=== PATIENT | female | born 1950 | race Caucasian/White ===

== ENCOUNTER 2018-09-09 04:56 | Observation (INO) ==
--- NOTE | 2018-09-09 05:11 | ED ---
HPI General Chief Complaint: Chest Pain Stated Complaint: SOB chest pain sore throat Time Seen by Provider: 09/09/18 05:05 Source: patient Mode of arrival: ambulatory Limitations: no limitations History of Present Illness HPI narrative: 68-year-old female presents to the emergency department stating that she has been having chest pain on and off for the past month was seen by her primary care provider recently who did an EKG and chest x-ray which was reportedly normal and has been referred to the [facility] heart group but has not yet seen the automatic vulcanizing operator. Patient states over the past week she is continued to have symptoms and last evening she took a Advil PM without relief and she has been having symptoms since approximately 8:30 PM. Patient states that she has had associated shortness of breath tightness or soreness in her throat. Patient had no fever no chills no nausea no vomiting no sinus pressure no drainage no ear pain no cough no congestion no neck pain or stiffness she has noted as well as having chest pain shortness of breath but does not report any productive cough or wheezing denies any nausea vomiting or abdominal pain flank pain change in urine output or dysuria no change in bowel habits no report of joint pain no swelling no lower extremity pain or swelling. Patient denies protracted illness or surgical procedure but did report last month flying to [place] and back. No personal history of family history of clotting disorder DVT or PE. Patient denies personal history of hypertension dyslipidemia diabetes or cardiac disease but does admit to tobacco use daily. Patient is unable to identify exacerbating or alleviating factors. MD complaint: Reports chest pain STEMI Alert: No Onset (ago): hour(s) Duration: constant Onset: during rest Pain location: Reports substernal and left chest Severity: moderate Severity scale (1-10): 4 Quality: Reports tightness, aching and heaviness Pain radiation: Reports LUE Relieving factors: nothing Exacerbating factors: nothing Context: Denies recent illness, recent surgery, recent immobilization, recent travel, trauma/injury, new medications and history of DVT/PE Associated symptoms: Reports dyspnea; Denies nausea, vomiting, diaphoresis, sense of impending doom, syncope, palpitations, fever, cough and leg swelling Treatments prior to arrival chest pain: Reports none Related Data On Oral Contraceptives: No Home Medications Medication Instructions Recorded Confirmed ibuprofen [Advil] 600 mg PO 09/09/18 Allergies Allergy/AdvReac Type Severity Reaction Status Date / Time morphine Allergy Mild Nausea/Vomi Verified 09/09/18 05:09 ting MORAPHINE AdvReac Mild Nausea/Vomi Uncoded 07/11/06 16:03 ting Review of Systems ROS: all other systems reviewed are negative PMFSH Social History Social History Substance History: No History of Abuse Second Hand Smoke Exposure: Yes Smoking Status: Light tobacco smoker Tobacco Type: Cigarettes How Often Do You Have a Drink Containing Alcohol: 2 to 4 times a month Recent Travel in [facility] within the Last 8 Weeks: No Recent Out of Country Travel within the Last 8 Weeks: No Exam Narrative Exam Narrative: GENERAL: Well-nourished, well-developed patient. SKIN: Focused skin assessment warm/dry. HEAD: Normocephalic. EYES: No scleral icterus. No injection or drainage. NECK: Supple, trachea midline. No JVD or lymphadenopathy. CARDIOVASCULAR: Regular rate and rhythm without murmurs, gallops, or rubs. RESPIRATORY: Breath sounds equal bilaterally. No accessory muscle use. GASTROINTESTINAL: Abdomen soft, non-tender, nondistended. MUSCULOSKELETAL: No cyanosis, or edema. BACK: Nontender without obvious deformity. No CVA tenderness. Course Initial Documented Vital Signs Pulse Rate 89 09/09/18 05:00 Blood Pressure 131/90 09/09/18 05:00 Pulse Oximetry 98 09/09/18 05:00 Last Documented Vital Signs Pulse Rate 78 09/09/18 05:27 Respiratory Rate 16 09/09/18 05:27 Blood Pressure 124/88 09/09/18 05:27 Pulse Oximetry 98 09/09/18 05:04 Medical Decision Making [facility] Narrative Medical decision making narrative: 68-year-old female presents to the emergency department for complaint of chest pain. Patient placed on quality assurance monitor continuous pulse oximetry IV access obtained specimens collected and sent for resulting patient administered aspirin and sublingual nitroglycerin. No relief after sublingual nitroglycerin so patient given Toradol 30 mg IV EKG shows no acute injury pattern change troponin I is less than 0.02 not elevated d-dimer is not elevated lab values are grossly normal range except for mild dehydration patient receiving IV fluids. Plan will be to admit patient to chest pain center per protocol due to her age and tobacco use. Discussed with [facility] Service will admit to [facility] pcp protocol, Dr Rubin Medical Screen Exam Complete: Yes Emergency Medical Condition: Yes Differential Diagnosis Differential Diagnosis: Chest pain, atypical chest pain, ACS, [place], dissection, esophageal spasm, PE, pneumothorax, pneumonia, viral syndrome Medical Records Medical records reviewed: Yes I reviewed the patient's medical records. Lab Data Lab results reviewed: Yes I reviewed the patient's lab results. Result diagrams: 09/09/18 05:05 09/09/18 05:05 Lab Results 09/09/18 09/09/18 Range/Units 05:05 05:05 CBC w Diff Auto diff final WBC 10.3 (4.0-11.0) th/mm3 RBC 4.51 (4.00-5.30) mil/mm3 Hgb 14.6 (11.6-15.3) gm/dL Hct 43.9 (35.0-46.0) % MCV 97.2 (80.0-100.0) fL MCH 32.3 (27.0-34.0) pg MCHC 33.2 (32.0-36.0) % RDW 12.7 (11.6-17.2) % Plt Count 279 (150-450) th/mm3 MPV 7.9 (7.0-11.0) fL Neut % (Auto) 80.3 H (16.0-70.0) % Lymph % (Auto) 11.4 (9.0-44.0) % Norman % (Auto) 3.7 (0.0-8.0) % Eos % (Auto) 2.0 (0.0-4.0) % Baso % (Auto) 2.6 H (0.0-2.0) % Neut # (Auto) 8.2 H (1.8-7.7) th/mm3 Lymph # (Auto) 1.2 (1.0-4.8) th/mm3 Norman # (Auto) 0.4 (0.0-0.9) th/mm3 Eos # (Auto) 0.2 (0.0-0.4) th/mm3 Baso # (Auto) 0.3 H (0.0-0.2) th/mm3 WBC Differential . Differential Comment . Sodium 141 (136-145) meq/L Potassium 4.3 (3.5-5.1) meq/L Chloride 106 (98-107) meq/L Carbon Dioxide 27.8 (21.0-32.0) meq/L Anion Gap 7 (5-15) meq/L BUN 20 H (7-18) mg/dL Creatinine 0.74 (0.50-1.00) mg/dL Estimated GFR 78 L (>89) mL/min Random Glucose 90 (74-106) mg/dL Calcium 8.6 (8.5-10.1) mg/dL Magnesium 2.2 (1.5-2.5) mg/dL Total Bilirubin 0.5 (0.2-1.0) mg/dL AST 22 (15-37) U/L ALT 15 (10-53) U/L Alkaline Phosphatase 72 (45-117) U/L Total Creatine Kinase 102 (26-192) U/L CK-MB (CK-2) Less than 1.0 (0.5-3.6) ng/mL Troponin I Less than 0.02 L (0.02-0.05) ng/mL Total Protein 7.4 (6.4-8.2) g/dL Albumin 3.6 (3.4-5.0) g/dL Lipase 90 (73-393) U/L Serum Alcohol Less than 3 (0-5) mg/dL ECG Data EKG Prior to Arrival: No Attestation: I personally reviewed and interpreted this ECG as follows: (EKG: Normal sinus rhythm rate [address] elevation or injury pattern LA interval 180 ms QRS interval 80 ms QTC 59 with QTC of 403 ms) Prior ECG tracings: not available for review Discharge Plan Physicians Team ED Provider: Anya Hdz Primary Care Provider: Cameron Fuller Rxs /Orders / Referrals /Forms Prescriptions: No Action ibuprofen [Advil] 200 mg Tablet 600 mg PO RF: 0 Status ED Status: With Doctor
[2018-09-09] MEDS ORDERED: Sod Chloride 0.9% Inj 1,000 ML IV.CONT SCH (05:15)
[2018-09-09 05:19] LABS: Baso # (Auto) 0.3 th/mm3 (0.0-0.2); Baso % (Auto) 2.6 % (0.0-2.0); Eos # (Auto) 0.2 th/mm3 (0.0-0.4); Hematocrit 43.9 % (35.0-46.0); Hemoglobin 14.6 gm/dL (11.6-15.3); Lymph # (Auto) 1.2 th/mm3 (1.0-4.8); Lymph % (Auto) 11.4 % (9.0-44.0); Mean Corpuscular HGB Conc 33.2 % (32.0-36.0); Mean Corpuscular Hemoglobin 32.3 pg (27.0-34.0); Mean Corpuscular Volume 97.2 fL (80.0-100.0); Mean Platelet Volume 7.9 fL (7.0-11.0); Mono # (Auto) 0.4 th/mm3 (0.0-0.9); Mono % (Auto) 3.7 % (0.0-8.0); Neut # (Auto) 8.2 th/mm3 (1.8-7.7); Neut % (Auto) 80.3 % (16.0-70.0); Platelet Count 279 th/mm3 (150-450); Red Blood Count 4.51 mil/mm3 (4.00-5.30); Red Cell Distribution Width 12.7 % (11.6-17.2); White Blood Count 10.3 th/mm3 (4.0-11.0)
[2018-09-09 05:25] LABS: Chloride 106 meq/L (98-107); Potassium 4.3 meq/L (3.5-5.1); Sodium 141 meq/L (136-145)
[2018-09-09 05:28] LABS: Calcium 8.6 mg/dL (8.5-10.1)
[2018-09-09 05:29] LABS: Albumin 3.6 g/dL (3.4-5.0); Anion Gap 7 meq/L (5-15); Blood Urea Nitrogen 20 mg/dL (7-18); Carbon Dioxide 27.8 meq/L (21.0-32.0); Glucose,Random 90 mg/dL (74-106); Lipase 90 U/L (73-393); Magnesium 2.2 mg/dL (1.5-2.5)
[2018-09-09 05:31] LABS: Alanine Aminotransferase 15 U/L (10-53)
[2018-09-09 05:32] LABS: Aspartate Aminotransferase 22 U/L (15-37); Glomerular Filtration Rate 78 mL/min (>89)
[2018-09-09 05:33] LABS: Total Protein 7.4 g/dL (6.4-8.2)
[2018-09-09 05:34] LABS: Alkaline Phosphatase 72 U/L (45-117); Creatine Kinase 102 U/L (26-192)
[2018-09-09] MEDS ORDERED: Ketorolac Inj 30 MG/ML (IVP) Vial IV.PUSH ONE (05:37)
[2018-09-09] MEDS ORDERED: Acetaminophen 500 MG Tablet PO PRN (05:47)
--- NOTE | 2018-09-09 06:00 | XR ---
EXAM DATE: 09/09/2018 5:15 AM EST AGE/SEX: 68 years / Female INDICATIONS: Shortness of breath. CLINICAL DATA: This is the patient's initial encounter. Patient reports that signs and symptoms have been present for 1 day and indicates a pain score of 0/10. MEDICAL/SURGICAL HISTORY: None. None. COMPARISON: POI, XR CHEST PA AND LAT, 09/04/2018. . FINDINGS: A single AP view of the chest demonstrates the lungs to be symmetrically aerated without evidence of mass, infiltrate or effusion. The cardiomediastinal contours are unremarkable. Osseous structures a re intact with mild scoliosis and degenerative change. There are overlying electrocardiogram leads. CONCLUSION: No acute cardiopulmonary disease. Electronically signed by: Chadwick Gutierrez MD 09/09/2018 5:58 AM EST
[2018-09-09 08:49] LABS: Creatine Kinase 72 U/L (26-192)
--- NOTE | 2018-09-09 09:02 | P.HP ---
History of Present Illness Primary Care Physician: Cameron Fuller Chief Complaint: Chest pain History of Present Illness: This is a pleasant 68-year-old female patient with no known medical history presented to the ED with complaints of chest pain. Patient states that around 3 AM this morning she developed left-sided chest pain that was sharp in nature, states it radiated to her left arm with complaints of left arm numbness, rates the pain a 5 out of 10 at its worst on pain scale, lasted roughly 30 minutes and resolved on its own. Does admit to associated shortness of breath with the pain, denies any associated sweating, nausea or vomiting. Denies any known aggravating or alleviating factors. She states that this chest pain has been ongoing for the past month, occurring roughly once a week with similar presentation. She presented to the primary care doctor this week and an EKG was done which did not show anything significant and x-ray was done without any significant findings. States that she felt overall fatigued over the past couple days, states that she noticed a sore throat with dry cough. Her primary care doctor referred her to [facility] heart group and patient has been awaiting an appointment to see a cider maker. Patient has never had a stress test in the past. She is pretty active and works out 4 days a week with a regional trainer at the gym but states she feels too short of breath to try a treadmill stress test. Denies any recent illness including fever, chills, headache, abdominal pain, nausea, vomiting, diarrhea or dysuria. Her PCP has checked her lipids recently, denies any dyslipidemia. Family history is not significant for any cardiovascular disease. Does admit to smoking 3-4 cigarettes a day. - Diagnosis (1) Chest pain Review of Systems All other systems reviewed negative except as [facility] - History History Provided By: Patient - Medical History Medical History: Medical History (Last Updated 09/09/18 @ 09:25 by Diana Rojas) History of hysterectomy Tobacco abuse - Surgical History Surgical History: Surgical History (Last Updated 09/09/18 @ 09:25 by Diana Rojas) H/O breast augmentation H/O toe surgery History of appendectomy Hx of tonsillectomy - Family History Family History: Family History (Last Updated 09/09/18 @ 09:25 by Diana Rojas) Other Family history in first degree relatives is unremarkable - Social History I have reviewed the patient's Social History: Yes - Tobacco History Second Hand Smoke Exposure: Yes Tobacco Use In Past 30 Days: Yes Smoking Status: Light tobacco smoker Tobacco Type: Cigarettes - Alcohol History How Often Do You Have a Drink Containing Alcohol: 2 to 4 times a month - Substance Use History Substance History: No History of Abuse - Travel History Recent Travel in the [place] Within the Last 8 Weeks: No Recent Travel Out of the Country Within the Last 8 Weeks: No - Immunization History Tetanus Immunization: Unsure Medications and Allergies Active Medications: Active Medications Acetaminophen (Tylenol) 500 mg PO Q4H PRN PRN Reason: Headache/pain Aspirin (Aspirin) 325 mg PO DAILY [facility] Sodium Chloride (Ns Inj) 1,000 mls @ 100 mls/hr IV.CONT .Q10H [facility] Last Admin: 09/09/18 05:20 Dose: 100 mls/hr Nitroglycerin (Nitrostat Sl) 0.4 mg SL Q5M PRN PRN Reason: CHEST PAIN Sodium Chloride (Ns Flush) 2 ml IV.FLUSH UNSCH PRN PRN Reason: FLUSH AFTER USING IV ACCESS Sodium Chloride (Ns Flush) 2 ml IV.FLUSH BID PACHECO Sodium Chloride (Ns Flush) 2 ml IV.FLUSH PRN PRN PRN Reason: FLUSH AFTER USING IV ACCESS Allergies Allergy/AdvReac Type Severity Reaction Status Date / Time morphine Allergy Mild Nausea/Vomi Verified 09/09/18 05:09 ting MORAPHINE AdvReac Mild Nausea/Vomi Uncoded 07/11/06 16:03 ting Home Medications Medication Instructions Recorded Confirmed Type ibuprofen [Advil] 600 mg PO 09/09/18 History Exam Vital signs: Vital Signs 09/09/18 05:00 09/09/18 05:04 09/09/18 05:20 Pulse Rate 89 78 71 Respiratory Rate 16 16 Blood Pressure 131/90 143/106 H 133/90 Pulse Oximetry 98 98 09/09/18 05:25 09/09/18 05:27 09/09/18 06:08 Pulse Rate 78 77 Respiratory Rate 16 16 16 Blood Pressure 124/88 109/81 Pulse Oximetry 98 09/09/18 06:22 09/09/18 08:55 Pulse Rate 53 L Respiratory Rate 16 Blood Pressure Pulse Oximetry Intake & Output 09/08/18 09/09/18 09/09/18 18:59 06:59 18:59 Weight 78 kg Narrative: GENERAL: Well-developed, well-nourished patient in NAD. SKIN: Warm and dry. No rash. HEAD: Normocephalic. Atraumatic. EYES: Pupils equal and round. No scleral icterus. No injection or drainage. ENT: No nasal bleeding or discharge. Mucous membranes pink and moist. NECK: Supple. Trachea midline. CARDIOVASCULAR: Regular rate and rhythm. S1, S2 noted. No murmur appreciated. No reproducible chest pain to palpation. RESPIRATORY: No accessory muscle use. Clear to auscultation. Breath sounds equal bilaterally. GASTROINTESTINAL: Abdomen soft, non-tender, nondistended. Normoactive bowel sounds x4. MUSCULOSKELETAL: No obvious deformities. Extremities without clubbing, cyanosis , or edema. NEUROLOGICAL: Awake and alert. No obvious cranial nerve deficits. Motor grossly within normal limits. 5/5 muscle strength in bilateral upper and lower extremities. Normal speech. PSYCHIATRIC: Appropriate mood and affect; insight and judgment normal. Results - Labs CBC & Chem 7: 09/09/18 05:05 09/09/18 05:05 Labs: Laboratory Results - last 24 hr 09/09/18 09/09/18 09/09/18 05:05 05:05 08:00 CBC w Diff Auto diff final WBC 10.3 RBC 4.51 Hgb 14.6 Hct 43.9 MCV 97.2 MCH 32.3 MCHC 33.2 RDW 12.7 Plt Count 279 MPV 7.9 Neut % (Auto) 80.3 H Lymph % (Auto) 11.4 Randolph % (Auto) 3.7 Eos % (Auto) 2.0 Baso % (Auto) 2.6 H Neut # (Auto) 8.2 H Lymph # (Auto) 1.2 Randolph # (Auto) 0.4 Eos # (Auto) 0.2 Baso # (Auto) 0.3 H WBC Differential . Differential Comment . Sodium 141 Potassium 4.3 Chloride 106 Carbon Dioxide 27.8 Anion Gap 7 BUN 20 H Creatinine 0.74 Estimated GFR 78 L Random Glucose 90 Calcium 8.6 Magnesium 2.2 Total Bilirubin 0.5 AST 22 ALT 15 Alkaline Phosphatase 72 Total Creatine Kinase 102 72 CK-MB (CK-2) Less than 1.0 Troponin I Less than 0.02 L Less than 0.02 L Total Protein 7.4 Albumin 3.6 Lipase 90 Serum Alcohol Less than 3 - Imaging Impressions Chest X-Ray 09/09/18 05:05 CONCLUSION: No acute cardiopulmonary disease. Caprini VTE Risk Assessment Caprini VTE Risk Assessment: Moderate/High Risk (score >= 2) Caprini Risk Assessment Model: Point Value = 1 Point Value = 2 Point Value = 3 Point Value = 5 Age 41-60 Minor surgery BMI > 25 kg/m2 Swollen legs Varicose veins or History of unexplained or recurrent spontaneous Oral contraceptives or hormone replacement Sepsis (< 1 month) Serious lung disease, including pneumonia (< 1 month) Abnormal pulmonary function Acute myocardial infarction Congestive heart failure (< 1 month) History of inflammatory bowel disease Medical patient at bed rest Age 61-74 Arthroscopic surgery Major open surgery (> 45 min) Laparoscopic surgery (> 45 min) Malignancy Confined to bed (> 72 hours) Immobilizing plaster cast Central venous access Age >= 75 History of VTE Family history of VTE Factor V Leiden Prothrombin [id number] Lupus anticoagulant Anticardiolipin antibodies Elevated serum homocysteine Heparin-induced thrombocytopenia Other congenital or acquired thrombophilia Stroke (< 1 month) Elective arthroplasty Hip, pelvis, or leg fracture Acute spinal cord injury (< 1 month) Prophylaxis Regimen: Total Risk Factor Score Risk Level Prophylaxis Regimen 0-1 Low Early ambulation 2 Moderate Order ONE of the following: *Sequential Compression Device (SCD) *Heparin 5000 units SQ BID 3-4 Higher Order ONE of the following medications: *Heparin 5000 units SQ TID *Enoxaparin/Lovenox 40 mg SQ daily (WT < 150 kg, CrCl > 30 mL/min) *Enoxaparin/Lovenox 30 mg SQ daily (WT < 150 kg, CrCl > 10-29 mL/min) *Enoxaparin/Lovenox 30 mg SQ BID (WT < 150 kg, CrCl > 30 mL/min) AND/OR *Sequential Compression Device (SCD) 5 or more Highest Order ONE of the following medications: *Heparin 5000 units SQ TID (Preferred with Epidurals) *Enoxaparin/Lovenox 40 mg SQ daily (WT < 150 kg, CrCl > 30 mL/min) *Enoxaparin/Lovenox 30 mg SQ daily (WT < 150 kg, CrCl > 10-29 mL/min) *Enoxaparin/Lovenox 30 mg SQ BID (WT < 150 kg, CrCl > 30 mL/min) AND *Sequential Compression Device (SCD) Assessment and Plan - Assessment (1) Chest pain Code(s): R07.9 - Chest pain, unspecified Status: Acute - Plan This is a 68-year-old female patient with: Chest pain, atypical -Patient has been admitted to the chest pain center for observation. Serial EKGs and serial troponins been ordered for ruling out ACS purposes. Initial troponin flat. Continue to monitor trend. -EKG reviewed, showing normal sinus rhythm with controlled heart rate, no ST changes to indicate any ischemia. -Continue on cardiac telemetry, monitor for any arrhythmias. -Chest x-ray reviewed showing no acute cardiopulmonary disease. -CBC reviewed, essentially unremarkable. BMP reviewed, essentially unremarkable. D-dimer normal. -Patient was given nitroglycerin as well as Toradol IV in the ED, pain is somewhat improved. -Will add lipid panel to labs. -Patient's risk factors include age, tobacco use. -If ACS ruled out patient will undergo a nuclear imaging stress test to further rule out any ischemia. -Further hospitalization and treatment plan will depend on nuclear imaging results. -Patient is stable at this time and agreeable to the plan. DVT prophylaxis: SCDs.
[2018-09-09 10:39] LABS: Creatine Kinase 73 U/L (26-192)
[2018-09-09] MEDS ORDERED: Regadenoson Inj 0.4 MG/5 ML Syringe IV.PUSH ONE (13:04)
--- NOTE | 2018-09-09 14:21 | ECG ---
Date Performed: 09/09/2018 Time Performed: 05:03:09 PTAGE: 68 years EKG: Sinus rhythm BORDERLINE LEFT AXIS DEVIATION LOW QRS VOLTAGE IN EXTREMITY LEADS BORDERLINE ECG Compared to PREVIOUS TRACING no significant change PREVIOUS TRACIN08/24/2003 12.36 DOCTOR: Samaria Loya Interpretating Date/Time 09/09/2018 14:21:15
--- NOTE | 2018-09-09 14:43 | NM ---
EXAM DATE: 09/09/2018 2:26 PM EST AGE/SEX: 68 years / Female INDICATIONS:. Angina Left sided chest pain. CLINICAL DATA: This is the patient's initial encounter. Patient reports that signs and symptoms have been present for 1 day and indicates a pain score of 5/10. MEDICAL/SURGICAL HISTORY: None. Hysterectomy. Breast augmentation. COMPARISON: No prior exams available for comparison. DOSE: 8.1 mCi Tc 99m Myoview at rest 25.8 mCi [id number] at stress 0.4 mg Lexiscan STRESS SYMPTOMS: Stomach cramps. EJECTION FRACTION: >70 % TECHNIQUE: The patient underwent pharmacologic stress with infusion of prescribed dose. Continuous ECG tracing was monitored during stress. Gated SPECT imaging was performed after stress and conventi onal SPECT imaging was performed at rest. The examination was performed on a SPECT/CT scanner, both attenuation and non-corrected datasets were reviewed. FINDINGS: Distribution: The maximum perfused segment at stress is in the septal wall. Perfusion Study: The pattern of perfusion at stress is within normal limits. Gated Study: There are intact wall motion and wall thickening without hypokinetic or dyskinetic segm ents. The ejection fraction is calculated at >70%. RISK CATEGORY: Low (<1% Annual Motality Rate) CONCLUSION: 1. Negative examination. Electronically signed by: Anish Garcia MD 09/09/2018 2:41 PM EST
[2018-09-10] MEDS ORDERED: Aspirin 325 MG Tablet PO SCH (09:00)
--- NOTE | 2018-09-10 12:49 | ECG ---
Date Performed: 09/09/2018 Time Performed: 10:04:52 PTAGE: 68 years EKG: Sinus rhythm LOW QRS VOLTAGE IN EXTREMITY LEADS BORDERLINE ECG PREVIOUS TRACING : 09/09/2018 07.58 DOCTOR: Castillo Ayon Interpretating Date/Time 09/10/2018 12:44:49
--- NOTE | 2018-09-10 12:50 | ECG ---
Date Performed: 09/09/2018 Time Performed: 07:58:39 PTAGE: 68 years EKG: Sinus rhythm LOW QRS VOLTAGE IN EXTREMITY LEADS BORDERLINE ECG PREVIOUS TRACING : 09/09/2018 05.03 DOCTOR: Castillo Ayon Interpretating Date/Time 09/10/2018 12:45:34
--- NOTE | 2018-09-10 13:53 | TR ---
Date Performed: 09/09/2018 Time Performed: 13:33:33 DOCTOR: Rich Paula DRUG LIST: CLINICAL HISTORY: REASON FOR TEST: REASON FOR ENDING: OBSERVATION: CONCLUSION: COMMENTS: Lexiscan stress test was performed under standard four minute protocol. Radionuclide was injected one minute prior to ending the test. No electrocardiographic abormalities were present t o suggest ischemia. Nuclear imaging and interpretation are pending.
== END 2018-09-09 16:55 | disposition home or self-care (01) ==
LOC: PHED 04:56 → PHEDA 04:56 → PH3 08:05
PROVIDERS: ADMIT Hospitalist; ATTEND Hospitalist
DX: F17.210 Nicotine dependence, cigarettes, uncomplicated; J02.9 Acute pharyngitis, unspecified; Z90.49 Acquired absence of other specified parts of digestive tract; R94.31 Abnormal electrocardiogram [ECG] [EKG]; Z90.710 Acquired absence of both cervix and uterus; Z88.5 Allergy status to narcotic agent; R07.9 Chest pain, unspecified; R53.83 Other fatigue